=== PATIENT | male | born 2000 | race Caucasian/White ===

== ENCOUNTER 2024-01-04 01:50 | Emergency (ER) | payer MEDICAID ==
[~2024-01-04] VITALS: Ht 182.9 cm; Wt 90.9 kg
[2024-01-04 05:19] VITALS: BP 120/72; PULSE 59; RESP 16; TEMP 98; O2SAT 97
== END 2024-01-04 05:21 | disposition home or self-care (01) ==
LOC: ER 01:51
DX: S00.81XA Abrasion of other part of head, initial encounter (principal); R55 Syncope and collapse; W18.39XA Other fall on same level, initial encounter; Y93.89 Activity, other specified; Y92.89 Other specified places as the place of occurrence of the external cause; Y99.8 Other external cause status
CPT/HCPCS: 70450; 70486; 72125; 99285